=== PATIENT | male | born 1955 | race Caucasian/White ===

== ENCOUNTER → 2016-09-08 | Outpatient (CLI) | payer BC ==
--- NOTE | 2016-09-10 13:30 | US ---
EXAM DESCRIPTION: US CAROTID DOPPLER BILATERAL CLINICAL HISTORY: 61 y/o M, DIZZINESS COMPARISON: None. FINDINGS: Peak systolic velocity right common carotid artery 82 centimeters/second. Peak systolic velocity right internal carotid artery 66 centimeters/second. Right ICA to CCA ratio 0.8. Antegrade flow in the right vertebral artery. Peak systolic velocity right external carotid artery 91 centimeters/second. Grayscale images show a small to moderate amount of plaque in the right carotid bifurcation. Peak systolic velocity left common carotid artery 79 centimeters/second. Peak systolic velocity left internal carotid artery 102 centimeters/second. Left ICA to CCA ratio 1.3. Antegrade flow in the left vertebral artery. Peak systolic velocity left external carotid artery 116 centimeters/second. Grayscale images show a moderate amount of partially calcified plaque in the left carotid bifurcation. Grayscale images show left ICA approximately 70% stenosis. IMPRESSION: No significant carotid artery stenosis by velocity measurements, but grayscale images demonstrate bilateral carotid artery stenosis, approximately 70% on the left and 50% on the right. CTA is suggested for further evaluation. Electronically signed by: Andrews Pineda DO 09/10/2016 13:28
== END | disposition home or self-care (01) ==
LOC: US 11:12
PROVIDERS: ATTEND Internal Medicine Interventional Cardiology
DX: R42 Dizziness and giddiness (principal)

== ENCOUNTER → 2019-05-16 | Outpatient (CLI) | payer BC ==
--- NOTE | 2019-05-16 16:17 | CT ---
EXAM DESCRIPTION: Head CLINICAL HISTORY: SYNCOPE AND COLLAPSE COMPARISON: None TECHNIQUE: Noncontrast transaxial CT images of the head are obtained from base to vertex. This exam was performed according to our departmental dose-optimization program, which includes automated exposure control, adjustment of the mA and/or kV according to patient size and/or use of iterative reconstruction technique. FINDINGS: The midline structures are not displaced. The sulci are age appropriate. The lateral, third, and fourth ventricles are normal in size, shape, and anatomic positioning. There is no evidence of mass, mass effect, hydrocephalus, or acute intracranial hemorrhage. No abnormal extra axial fluid collections are seen. Normal birmingham-white differentiation is seen. The visualized bone windows show no depressed skull fracture or significant abnormality. The visualized paranasal sinuses shows complete opacification of the visualized maxillary sinuses with periosteal thickening. Increased attenuation in the central aspect of the maxillary sinuses. Moderate mucosal thickening of the ethmoid air cells is seen. Small amount of fluid in the right mastoid air cells. IMPRESSION: 1. No acute abnormality is seen on noncontrast CT of the head. 2. Correlate lateral maxillary sinusitis with complete opacification of the sinuses is central hyperdensity and calcifications that could indicate fungal disease versus polyposis. 3. Moderate subacute to chronic sinus disease of the ethmoid air cells. Electronically signed by: Silver Anderson MD 05/16/2019 4:15 PM CDT
== END ==
LOC: CT 15:51
PROVIDERS: ATTEND Nurse Practitioner Family
DX: J34.9 Unspecified disorder of nose and nasal sinuses (principal); J32.9 Chronic sinusitis, unspecified; R55 Syncope and collapse

== ENCOUNTER → 2019-06-11 | Outpatient (CLI) | payer BC | LOC: LAB.O 10:58 | PROVIDERS: ATTEND Emergency Medicine | DX: R50.9 Fever, unspecified (principal) ==

== ENCOUNTER 2020-07-20 01:03 | Emergency (ER) | payer MEDICARE, OTHER ==
--- NOTE | 2020-07-20 01:35 | ED.PDOC ---
History of Present Illness - General Chief Complaint: Trauma Stated Complaint: fell off horse about 40 mins prior to ED arrival Time Seen by Provider: 07/20/20 01:25 Source: patient, family - History of Present Illness Initial Comments: AFTER FALL OFF A HORSE WHILE INTOXICATED, APPEARED TO HAVE PAIN IN HIS PELVIC AREA AND FELL TO THE GROUND WHEN TRYING TO STAND. PATIENT VERY BILIGERENT AND AGGRESSIVE TOWARD EMS AND UNCOOPERATIVE IN THE ER. Pain Location: other - WILL NOT OR CANNOT LOCALIZE PAIN Loss of Consciousness: no loss of consciousness Allergies/Adverse Reactions: Allergies NO KNOWN ALLERGY Allergy (Verified 07/20/20 01:28) Home Medications: Ambulatory Orders Amlodipine Besylate 10 mg PO DAILY 07/20/20 Metoprolol Succinate [Metoprolol Succinate ER] 100 mg PO DAILY 07/20/20 Omeprazole [Prilosec Cap] 40 mg PO BID 07/20/20 Paroxetine HCl [Paxil] 20 mg PO DAILY 07/20/20 Tadalafil 10 mg PO DAILY 07/20/20 Valsartan-Hydrochlorothiazide [Valsartan/Hydrochlorothia 160-25 mg] 1 tab PO DAILY 07/20/20 Review of Systems - Review of Systems Unable to Obtain Due To: condition Past Medical History (General) - Patient Medical History Hx Seizures: No Hx Stroke: No Hx Dementia: No Hx Asthma: No Hx of COPD: No Hx Cardiac Disorders: No Hx Congestive Heart Failure: No Hx Pacemaker: No Hx Hypertension: Yes Hx Thyroid Disease: No Hx Diabetes: No Hx Gastroesophageal Reflux: Yes Hx Renal Disease: No Hx Cancer: No Hx of HIV: No Hx Hepatitis C: No Hx MRSA: No Surgical History: noncontributory - Social History Hx Alcohol Use: Yes Family Medical History - Family History Mother Family History: Unknown Physical Exam - Physical Exam General Appearance: Agitated Head Injury: no evidence of injury Neck Exam: non-tender, full range of motion, normal alignment, normal inspection Cardiovascular/Respiratory: regular rate, rhythm, normal peripheral pulses, no JVD, normal breath sounds Gastrointestinal/Abdominal: normal bowel sounds, non tender, soft, no organomegaly Extremity Exam: bony-point tenderness - OVER THE PUBIS, other - TENDERNESS TO PALPATION OVER ANTERIOR PELVIC AREA Neurologic: other - LABILE AFFECT, AGGRESSIVE, UNCOOPERATIVE, APPEARS VERY INTOXICATED. Skin Exam: normal color Departure - Departure Clinical Impression: Multiple contusions Time of Disposition: :23 Disposition: Discharge to Home or Self Care Condition: Good Departure Forms: ED Discharge - Pt. Copy, Patient Portal Self Enrollment Instructions: DI for Trauma, Contusion (DC) Referrals: PIERRE HERBERT [Primary Care Provider] - 1-2 Weeks Home Medications: Ambulatory Orders Amlodipine Besylate 10 mg PO DAILY 07/20/20 Metoprolol Succinate [Metoprolol Succinate ER] 100 mg PO DAILY 07/20/20 Omeprazole [Prilosec Cap] 40 mg PO BID 07/20/20 Paroxetine HCl [Paxil] 20 mg PO DAILY 07/20/20 Tadalafil 10 mg PO DAILY 07/20/20 Valsartan-Hydrochlorothiazide [Valsartan/Hydrochlorothia 160-25 mg] 1 tab PO DAILY 07/20/20 Additional Instructions: OTC IBUPROFEN 800 MG THREE TIMES PER DAY NEEDED FOR DISCOMFORT.
[2020-07-20 02:03] VITALS: BP 147/83; O2SAT 98
[2020-07-20] MEDS ORDERED: ONDANSETRON INJ 4 MG/2 ML VIAL ONE (02:08)
[2020-07-20] MEDS ORDERED: ONDANSETRON INJ 4 MG/2 ML VIAL IV ONE (02:08)
--- NOTE | 2020-07-20 02:15 | CT ---
EXAM DESCRIPTION: Abdoment/Pelvis w/o Contrast (accession [id number]), Chest w/o Contrast (accession [id number]) 07/20/2020 2:12 AM BAG [facility]ER CLINICAL HISTORY: 65 years, Male, trauma COMPARISON: [None] PROCEDURE: Multiple transaxial tomograms of the chest, abdomen and pelvis were performed from the lung apices to the symphysis pubis utilizing 5 mm slice thickness at 5 mm interval reconstruction, without administration of IV and oral contrast. Multiplanar reformats in the sagittal and coronal plane were generated and reviewed. An individualized dose optimization technique, Automated Exposure Control, was utilized for the performed procedure. FINDINGS: The lack of IV and oral contrast limits evaluation of solid organs, subtle lesions cannot be excluded. Chest: The lung bases demonstrate to be clear. There is minimal dependent atelectatic changes. There is no evidence for pneumothorax. The trachea mainstem bronchus demonstrate to unremarkable. There is no pleural/or pericardial effusions. The thoracic aorta demonstrate very minimal intimal cusp indication. The heart is not enlarged. There are no significant coronary artery calcification. There is no significant mediastinal/or hilar lymphadenopathy. The axillary regions demonstrate to be clear. The bone windows demonstrate no significant skeletal lesions. Abdomen and pelvis: Grossly the unopacified liver, gallbladder, pancreas, spleen and adrenal glands demonstrate to be within normal limits, no significant focal lesions were identified. The kidneys demonstrate grossly unremarkable, no hydronephrosis or stones were identified. There is a hyperdense exophytic lower pole right renal cyst measuring 1.8 cm on image 41/103. There is a exophytic lower pole left renal cyst measuring 3.7 cm on image 46 Grossly the unopacified stomach, small bowel and large bowel demonstrate to be within normal limits. Fecal residue and underdistention of the large bowel limits the evaluation. There is no evidence for bowel dilatation/or free air. There is diverticulosis within the sigmoid colon. The appendix is normal. The urinary bladder demonstrate to be within normal limits. The prostate gland is prominent perhaps related to BPH. The aorta demonstrate to be within normal limits. There is no retroperitoneal lymphadenopathy. There is no evidence for ascites and/or significant abnormal fluid collections. The bone windows demonstrate no significant skeletal lesions. There is no evidence for significant fracture. Minimal degenerative changes posterior facet lower lumbar spine. IMPRESSION: MINIMAL DEPENDENT ATELECTATIC CHANGES LUNG BASES. BILATERAL RENAL CYSTS. DIVERTICULOSIS WITH NO EVIDENCE FOR DIVERTICULITIS. MILD PROMINENCE OF THE PROSTATE GLAND. NO EVIDENCE FOR NEPHROLITHIASIS AND/OR HYDRONEPHROSIS. NO DEFINITIVE ACUTE INTRATHORACIC AND/OR INTRA-ABDOMINAL PROCESS. Electronically signed by: Jake Fuentes MD 07/20/2020 2:14 AM [facility] [[email or web address]]
--- NOTE | 2020-07-20 02:16 | CT ---
EXAM DESCRIPTION: Abdoment/Pelvis w/o Contrast (accession [id number]), Chest w/o Contrast (accession [id number]) 07/20/2020 2:12 AM [facility] [employer]ER CLINICAL HISTORY: 65 years, Male, trauma COMPARISON: [None] PROCEDURE: Multiple transaxial tomograms of the chest, abdomen and pelvis were performed from the lung apices to the symphysis pubis utilizing 5 mm slice thickness at 5 mm interval reconstruction, without administration of IV and oral contrast. Multiplanar reformats in the sagittal and coronal plane were generated and reviewed. An individualized dose optimization technique, Automated Exposure Control, was utilized for the performed procedure. FINDINGS: The lack of IV and oral contrast limits evaluation of solid organs, subtle lesions cannot be excluded. Chest: The lung bases demonstrate to be clear. There is minimal dependent atelectatic changes. There is no evidence for pneumothorax. The trachea mainstem bronchus demonstrate to unremarkable. There is no pleural/or pericardial effusions. The thoracic aorta demonstrate very minimal intimal cusp indication. The heart is not enlarged. There are no significant coronary artery calcification. There is no significant mediastinal/or hilar lymphadenopathy. The axillary regions demonstrate to be clear. The bone windows demonstrate no significant skeletal lesions. Abdomen and pelvis: Grossly the unopacified liver, gallbladder, pancreas, spleen and adrenal glands demonstrate to be within normal limits, no significant focal lesions were identified. The kidneys demonstrate grossly unremarkable, no hydronephrosis or stones were identified. There is a hyperdense exophytic lower pole right renal cyst measuring 1.8 cm on image 41/103. There is a exophytic lower pole left renal cyst measuring 3.7 cm on image 46 Grossly the unopacified stomach, small bowel and large bowel demonstrate to be within normal limits. Fecal residue and underdistention of the large bowel limits the evaluation. There is no evidence for bowel dilatation/or free air. There is diverticulosis within the sigmoid colon. The appendix is normal. The urinary bladder demonstrate to be within normal limits. The prostate gland is prominent perhaps related to BPH. The aorta demonstrate to be within normal limits. There is no retroperitoneal lymphadenopathy. There is no evidence for ascites and/or significant abnormal fluid collections. The bone windows demonstrate no significant skeletal lesions. There is no evidence for significant fracture. Minimal degenerative changes posterior facet lower lumbar spine. IMPRESSION: MINIMAL DEPENDENT ATELECTATIC CHANGES LUNG BASES. BILATERAL RENAL CYSTS. DIVERTICULOSIS WITH NO EVIDENCE FOR DIVERTICULITIS. MILD PROMINENCE OF THE PROSTATE GLAND. NO EVIDENCE FOR NEPHROLITHIASIS AND/OR HYDRONEPHROSIS. NO DEFINITIVE ACUTE INTRATHORACIC AND/OR INTRA-ABDOMINAL PROCESS. Electronically signed by: Jake Fuentes MD 07/20/2020 2:14 AM [facility]
--- NOTE | 2020-07-20 02:17 | CT ---
EXAM DESCRIPTION: Cervical Spine 07/20/2020 2:14 AM SURGERY CONSULTANT CLINICAL HISTORY: 65 years, Male, trauma COMPARISON: None. PROCEDURE: Multiple axial CT images through the cervical spine were obtained at 2.5 mm slice thickness at 2.5 mm interval reconstruction. In addition 2-D multiplanar reformats and the sagittal coronal plane were performed and reviewed. An individualized dose optimization technique, Automated Exposure Control, was utilized for the performed procedure. FINDINGS: The alignment, vertebral body heights, and disc spaces are normal. There is no evidence of fracture or subluxation. There is no significant degenerative changes. The spinal canal demonstrate no evidence for significant stenosis. Neural foramina demonstrate to be unremarkable. The uncovertebral joints demonstrate to be normal. There is no prevertebral soft tissue swelling. Sagittal coronal reformatted images demonstrate no subluxation or bony abnormalities. IMPRESSION: CT CERVICAL SPINE NEGATIVE FOR FRACTURE OR SUBLUXATION. Electronically signed by: Jake Fuentes MD 07/20/2020 2:15 AM [facility]
--- NOTE | 2020-07-20 02:19 | CT ---
EXAM DESCRIPTION: Head 07/20/2020 2:15 AM [facility] CLINICAL HISTORY: 65 years, Male, TRAUMA COMPARISON: None. FINDINGS: Multiple transaxial tomograms of the brain were obtained from the base of the skull to the vertex without contrast. 2-D multiplanar reformats and the coronal and sagittal plane were performed and reviewed. An individualized dose optimization technique, Automated Exposure Control, was utilized for the performed procedure. Study is severely compromised due to motion artifact with stepladder artifact limiting diagnostic value. Grossly the parenchyma as well as the b[place] and white matter differentiation demonstrate to be within normal limits. No definitive significant acute intracranial hemorrhage although the presence of motion artifact greatly limits the evaluation especially along the mid/lower aspect of the brain. Lateral ventricles and cisterns displace normal appearance. No significant intra or extra axial fluid collections were seen. Grossly the calvarium is intact. There is opacification bilateral maxillary sinus and minimal mucosal thickening of the ethmoid sinuses. The orbits demonstrate to be within normal limits. The mastoid air cells are normal. IMPRESSION: COMPROMISED STUDY DUE TO MOTION ARTIFACT WITH NO GROSS INTRACRANIAL HEMORRHAGE. CLINICALLY CONCERNED REPEAT CT SCAN COULD BE OF ASSISTANCE. MAXILLARY AND ETHMOID PANSINUSITIS. Electronically signed by: Jake Fuentes MD 07/20/2020 2:17 AM [facility]
[2020-07-20 02:34] VITALS: TEMP 98
== END 2020-07-20 02:34 | disposition home or self-care (01) ==
LOC: ER 01:03
DX: T14.8XXA Other injury of unspecified body region, initial encounter (principal); R10.2 Pelvic and perineal pain; K57.30 Diverticulosis of large intestine without perforation or abscess without bleeding; J32.4 Chronic pansinusitis; F10.129 Alcohol abuse with intoxication, unspecified; K21.9 Gastro-esophageal reflux disease without esophagitis; I10 Essential (primary) hypertension; V80.010A Animal-rider injured by fall from or being thrown from horse in noncollision accident, initial encounter; Y93.52 Activity, horseback riding; Y92.9 Unspecified place or not applicable; Z79.899 Other long term (current) drug therapy
CPT/HCPCS: 70450; 71250; 72125; 74176; J2405